=== PATIENT | female | born 1965 | race African-American/Black ===

== ENCOUNTER 2019-03-15 22:22 | Emergency (ER) | payer SELFPAY ==
[~2019-03-15] VITALS: Ht 162.6 cm; Wt 83.0 kg
[~2019-03-15 22:22] MED LIST: ATEN50TA PO
[2019-03-15] MEDS ORDERED: LIDOCAINE HCL/PF 1% 10 MG/ML 5ML VIAL IJ ONE (23:30)
[2019-03-15] MEDS ORDERED: IBUPROFEN 800MG TABLET PO ONE (23:30)
[2019-03-15] MEDS ORDERED: BACITRACIN ZINC OINT UDPKT TOP ONE (23:30)
[2019-03-15] MEDS ORDERED: TETANUS, DIPHTHERIA, PERTUSSIS VAC/PF 0.5ML (>7YR OLD) IM ONE (23:30)
[2019-03-15] MEDS ORDERED: ONDANSETRON 4MG ODT PO ONE (23:30)
[2019-03-16] MEDS ORDERED: CLONIDINE 0.2MG TABLET PO ONE (01:00)
[2019-03-16 03:05] VITALS: BP 152/98
== END 2019-03-16 03:05 | disposition home or self-care (01) ==
LOC: ER 22:22
DX: S01.511A Laceration without foreign body of lip, initial encounter (principal); R22.0 Localized swelling, mass and lump, head; V49.49XA Driver injured in collision with other motor vehicles in traffic accident, initial encounter; Y93.89 Activity, other specified; Y92.410 Unspecified street and highway as the place of occurrence of the external cause; Z23 Encounter for immunization
CPT/HCPCS: 12011; 70450; 70486; 90471; 90715; 99284; J3490; Q0162; Z7610